=== PATIENT | male | born 1965 | race Two or more races ===

== ENCOUNTER 2024-03-18 16:14 | Outpatient (CLI) | payer MEDICAID ==
[~2024-03-18 16:14] MED LIST: ALBU6.7H3 IH; BACDS PO; LISI-230 PO
== END 2024-03-18 23:59 | disposition home or self-care (01) ==
LOC: RAD 16:14
PROVIDERS: ATTEND Family Medicine
DX: G56.03 Carpal tunnel syndrome, bilateral upper limbs (principal); M19.041 Primary osteoarthritis, right hand; M19.031 Primary osteoarthritis, right wrist; M19.032 Primary osteoarthritis, left wrist
CPT/HCPCS: 73110; 73130